=== PATIENT | male | born 1960 | race Caucasian/White ===

== ENCOUNTER 2016-07-11 14:32 | Emergency (ER) | payer OTHER ==
[~2016-07-11] VITALS: Ht 182.9 cm; Wt 84.6 kg
[2016-07-11 14:35] VITALS: TEMP 98.6; Ht 182.9 cm; Wt 84.6 kg
--- OUTSIDE RECORDS SUMMARY | 2016-07-11 14:36 | XMS REPORT | CCD ---
Author Author YURY CRAWFORD Organization Unknown Address [address], [place] [id number] Phone 0 Care Team Providers Care Youth Services Librarian Name Role Phone ELBA HOLLEY Attending Physician 0 Vital Signs Unknown or Not Available. Allergies Unknown or Not Available. Procedures Unknown or Not Available. History of Immunizations Unknown or Not Available. Problems Unknown or Not Available. Results COMP METABOLIC - Collect Date/Time: 01/16/2016 15:54 Test Name Code Test Result Test Units Test Ref Range GLUCOSE 112 mg/dL L=70 H=110 BUN 39 mg/dL L=7 H=18 CREATININE 1.27 mg/ dL L=0.60 H=1.30 AGE 55 YEARS GFR 58.7 SODIUM 137 mmol/L L=136 H=145 POTASSIUM 4.3 mmol/ L L=3.5 H=5.1 CHLORIDE 102 mmol/L L=98 H=107 CO2 26 mmol/L L=21 H=32 CALCIUM 9.9 mg/dL L=8.5 H=10.1 AST 14 U/L L=15 H=37 ALT 42 U/L L=12 H=78 ALKALINE PHOS 110 U/ L L=46 H=116 TOTAL PROTEIN 7.5 g/ dL L=6.4 H=8.2 ALBUMIN 4.1 g/dL L=3.4 H=5.0 TOTAL BILI 0.30 mg/ dL L=0.00 H=1.00 LIPID PANEL - Collect Date/Time: 01/16/2016 15:54 Test Name Code Test Result Test Units Test Ref Range CHOLESTEROL 204 mg/ dL L=0 H=200 TRIGLYCERIDES 368 mg /dL L=30 H=150 HDL 61 mg/dL L=40 H=60 LDL, CALC 69 mg/dL L=0 H=100 VLDL 74 mg/dL L=0 H=40 CHOL/HDL RISK 3.3 RATIO L=0.0 H=5.0 PT FASTING: NO N/A THYROXINE (T4) FREE - Collect Date/Time: 01/16/2016 15:54 Test Name Code Test Result Test Units Test Ref Range FT4 0.92 ng/dL L=0.76 H=1.46 TSH - Collect Date/Time: 01/16/2016 15:54 Test Name Code Test Result Test Units Test Ref Range TSH 0.87 uIU/mL L=0.36 H=3.74 CBC W/ DIFF - Collect Date/Time: 01/16/2016 15:54 Test Name Code Test Result Test Units Test Ref Range WBC 11.0 x10^3 L=4.8 H=10.8 RBC 5.72 x10^6 L=4.70 H=6.10 HEMOGLOBIN 17.3 g/ dL L=14.0 H=18.0 HEMATOCRIT 50.0 % L=42.0 H=52.0 MCV 87 fL L=80 H=100 MCH 30.2 pg L=27.0 H=33.0 MCHC 34.5 g/dL L=33.0 H=37.0 RDW 12.9 % L=11.5 H=14.5 PLATELETS 277 x10^3 L=150 H=450 MPV 7.2 fL L=7.8 H=11.0 NEUTROPHILS 66.5 % L=40.0 H=80.0 LYMPHOCYTES 24.6 % L=20.0 H=45.0 MONOCYTES 4.7 % L=0.0 H=10.0 EOSINOPHILS 4.1 % L=0.0 H=5.0 BASOPHILS 0.1 % L=0.0 H=2.0 REFLEX MAN DIFF NO N /A UA AUTO W/ MICRO - Collect Date/Time: 01/16/2016 16:05 Test Name Code Test Result Test Units Test Ref Range COLOR Yellow N/A NORMAL: Yellow APPEARANCE Clear N/ A NORMAL: Clear GLUCOSE Negative N/ A NORMAL: Negative BILIRUBIN Negative N /A NORMAL: Negative KETONE Trace N/A NORMAL: Negative SPEC GRAVITY >=1.030 N/A NORMAL: 1.005-1.030 BLOOD Trace-in N/A NORMAL: Negative PROTEIN Negative N/ A NORMAL: Negative PH 5.5 N/A NORMAL: 5.0-8.0 UROBILINOGEN 0.2 N/ A NORMAL: Negative NITRITE Negative N/ A NORMAL: Negative LEUKOCYTES Negative N/A NORMAL: Negative MICRO RBC 5-10 N/A NORMAL: 0-2 MICRO WBC 0-2 N/A NORMAL: 0-2 BACTERIA None Seen N /A NORMAL: None-Trace EPI CELLS 0-5 N/A NORMAL: 0-15 MUCUS Large N/A NORMAL: None-Small AMORPHOUS Large N/A NORMAL: None Seen YEAST None Seen N/A NORMAL: None Seen CRYSTALS None Seen N /A NORMAL: None Seen CAST None Seen N/A NORMAL: None Seen URINE CULTURE? NO N/ A Active Medications Unknown or Not Available. Medications Administered During Visit Unknown or Not Available. Encounters Encounter Diagnosis Diagnosis Code Start Date Hypothyroidism, unspecified E039 2015 Social History Smoking Status Code Start Date End Date Current every day smoker [id number] Patient Decision Aids Unknown or Not Available. Discharge Instructions You were admitted to [facility] on 01/16/2016 15:50 with a principal diagnosis of Hypothyroidism, unspecified You had the following tests done: CBC W / DIFF COMP METABOLIC LIPID PANEL THYROXINE (T4) FREE TSH UA AUTO W/ MICRO You were discharged from [facility] on 01/16/2016 15:50 Should you have any questions prior to discharge, please contact a member of your healthcare team. If you have left the hospital and have any questions, please contact your primary care physician. Chief Complaint and Reason For Visit Chief Complaint Date of Onset LAB/XRAY Function Status Unknown or Not Available. Plan of Care Unknown or Not Available. Referral/Transition of Care Unknown or Not Available.
--- OUTSIDE RECORDS SUMMARY | 2016-07-11 14:36 | XMS REPORT | CCD ---
Author Author YURY CRAWFORD Organization Unknown Address [address], [place] [address] Phone 0 Care Team Providers Care Geospatial Program Management Officer Name Role Phone ANABELA AMAYA Attending Physician [phone] Vital Signs Unknown or Not Available. Allergies Unknown or Not Available. Procedures Procedure Code Procedure Type Date CHEST [id number] 02/21/2016 History of Immunizations Unknown or Not Available. Problems Unknown or Not Available. Results Unknown or Not Available. Active Medications Unknown or Not Available. Medications Administered During Visit Unknown or Not Available. Encounters Encounter Diagnosis Diagnosis Code Start Date Dyspnea, unspecified R0600 02/21/2016 Social History Smoking Status Code Start Date End Date Current every day smoker [id number] Patient Decision Aids Unknown or Not Available. Discharge Instructions You were admitted to [facility] on 02/21/2016 11:56 with a principal diagnosis of Dyspnea, unspecified You were discharged from [facility] on 02/21/2016 11:56 Should you have any questions prior to discharge, please contact a member of your healthcare team. If you have left the hospital and have any questions, please contact your primary care physician. Chief Complaint and Reason For Visit Chief Complaint Date of Onset CXR Function Status Unknown or Not Available. Plan of Care Unknown or Not Available. Referral/Transition of Care Unknown or Not Available.
--- OUTSIDE RECORDS SUMMARY | 2016-07-11 14:36 | XMS REPORT ---
Author Author [facility] Organization [facility] Address [address] [place], [place] [address] Phone [phone] Care Team Providers Care Metal Refiner Name Role Phone JAXON DE LEON, MAXIME PP [phone] Summary purpose CCDA Sent to [facility] Chief Complaint and Reason for Visit No authorized Reason for Visit (Admitting Diagnosis) is available for this visit. Problem list No authorized problems tracked for continuity of care are available for this visit. Encounters No authorized problems tracked for encounter diagnoses are available for this visit. Medications No medications recorded for this patient visit Allergies, adverse reactions, alerts Allergen Category Ingredient Status Reaction Severity Onset tramadol Drug tramadol Active Anaphylaxis Mild Adolescence Immunizations No immunizations recorded for this patient visit Relevant diagnostic tests and/or laboratory data No authorized results are available for this patient visit History of procedures Procedure Code Code Type Description Date Performed Performing Physician 27073 CPT-4 EMERGENCY DEPT VISIT 05-28-2015 SERA BRIGHT Functional status No functional or cognitive status observations are available for this visit. Vital signs No authorized vital signs are available for this visit. Social history No Social History or smoking status observations were recorded for this visit. ( Unknown if ever smoked.) Treatment Plan No treatment plan text is available for this visit. Hospital discharge instructions No discharge instruction text is available for this visit.
--- OUTSIDE RECORDS SUMMARY | 2016-07-11 14:36 | XMS REPORT | Continuity of Care Document ---
Demographics Preferred Language Unknown Marital Status Unknown Sabianist Affiliation Unknown Race Unknown Ethnic Group Unknown Author Author [facility] Organization [facility] Address Unknown Phone Unavailable Allergies Active Description Code Type Severity Reaction Onset Reported/Identified Relationship to Patient Clinical Status Yes tramadol 4180 Drug Allergy N/A N/A Confirmed or Verified Yes tramadol 4180 Drug Allergy Mild Anaphylaxis 05/28/2015 Medications Problems Date Dx Coded Attending Type Code Diagnosis Diagnosed By 05/28/2015 SERA BRIGHT MD S67.194A Crushing injury of right ring finger, initial encounter 05/28/2015 SERA BRIGHT MD W23.0XXA Caught, crush, jammed, or pinched betw moving objects, init 05/28/2015 SERA BRIGHT MD Y92.[address] in [facility] (private [facility] residence as place 05/28/2015 SERA BRIGHT MD Y93.89 Activity, other specified 05/28/2015 SERA BRIGHT MD Y99.9 Unspecified external cause status 05/28/2015 SERA BRIGHT MD S67.194A Crushing injury of right ring finger, initial encounter 05/28/2015 SERA BRIGHT MD W23.0XXA Caught, crush, jammed, or pinched betw moving objects, init 05/28/2015 SERA BRIGHT MD Y92.[address] in [facility] (private ) residence as place 05/28/2015 SERA BRIGHT MD Y93.89 Activity, other specified 05/28/2015 SERA BRIGHT MD Y99.9 Unspecified external cause status Procedures Code [place] [address] X-RAY EXAM OF FINGER(S) SERA BRIGHT MD 05/28/2015 25275 THER/PROPH/DIAG INJ IV PUSH SERA BRIGHT MD 05/28/2015 35334 EMERGENCY DEPT VISIT SERA BRIGHT MD 05/28/2015 J1885 KETOROLAC TROMETHAMINE INJ SERA BRIGHT MD 05/28/2015 01913 EMERGENCY DEPT VISIT SERA BRIGHT MD 05/28/2015 Results Encounters ACCT No. Visit Date/Time Discharge Status Pt. Type Provider Facility Loc./Unit Complaint [id number] 03/27/2016 12:41:00 ACT Unknown [id number] 03/04/2016 14:15:00 ACT Unknown [id number] 07/27/2014 10:32:00 ACT Unknown [id number] 05/24/2014 07:55:00 ACT Unknown [id number] 03/08/2013 09:15:00 ACT Unknown
--- OUTSIDE RECORDS SUMMARY | 2016-07-11 14:37 | XMS REPORT | CCD ---
Author Author YURY CRAWFORD Organization Unknown Address [address], [place] [address] Phone 0 Care Team Providers Care C4 Planner Name Role Phone ELBA HOLLEY Attending Physician [...] Date End Date Current every day smoker [id number] Patient Decision Aids Unknown or Not Available. Discharge Instructions You were admitted to [facility] on 01/16/2016 15:50 with a principal diagnosis of Hypothyroidism, unspecified You had the following tests done: CBC W / DIFF COMP METABOLIC LIPID PANEL THYROXINE (T4) FREE TSH UA AUTO W/ MICRO You were discharged from [facility] on 01/16/2016 15:50 Should you have [...]
--- OUTSIDE RECORDS SUMMARY | 2016-07-11 14:37 | XMS REPORT ---
Author Author [facility] Organization [facility] Address [address] [place], [place] [address] Phone [phone] Care Team Providers Care Store Consultant Name Role Phone JAXON DE LEON, MAXIME PP [phone] MAXIME COATES MD PP [phone] Summary purpose CCDA Sent to [facility] Chief Complaint and Reason for Visit No [...] Code Type Description Date Performed Performing Physician 76445 CPT-4 X-RAY EXAM OF FINGER(S) 05-28-2015 SERA BRIGHT J1885 CPT-4 KETOROLAC TROMETHAMINE INJ 05-28-2015 SERA BRIGHT 11523 CPT-4 EMERGENCY DEPT VISIT 05-28-2015 SERA BRIGHT 09126 CPT-4 THER/PROPH/DIAG INJ, IV PUSH 05-28-2015 SERA BRIGHT Functional status Cognitive Status Finding Observation Time Level of Consciousne Alert [id number] Oriented to Person Yes 88-77-251106:[address] Yes 31-97-962261:55 Oriented to Time Yes [id number]:55 Vital signs No authorized vital signs are available for this visit. Social history Type Value Smoking Status CURRENT EVERY DAY SMOKER Treatment Plan No treatment plan text is available for this visit. Hospital discharge instructions No discharge instruction text is available for this visit.
--- OUTSIDE RECORDS SUMMARY | 2016-07-11 14:37 | XMS REPORT | CCD ---
Author Author RAUL VILLAGOMEZ Organization Unknown Address [address], [place] [address] Phone 0 Care Team Providers Care Courtesy Car Driver Name Role Phone ELBA HOLLEY Attending Physician 0 Vital Signs Unknown or Not Available. Allergies Unknown or Not Available. Procedures Unknown or Not Available. History of Immunizations Unknown or Not Available. Problems Unknown or Not Available. Results COMP METABOLIC - Collect Date/Time: 05/11/2014 11:58 Test Name Code Test Result Test Units Test Ref Range GLUCOSE 115 mg/dL L=70 H=110 BUN 22 mg/dL L=7 H=18 CREATININE 1.40 mg/ dL L=0.60 H=1.30 AGE 53 YEARS GFR 56.1 SODIUM 140 mmol/L L=136 H=145 POTASSIUM 4.0 mmol/ L L=3.5 H=5.1 CHLORIDE 103 mmol/L L=98 H=107 CO2 27 mmol/L L=21 H=32 CALCIUM 9.8 mg/dL L=8.5 H=10.1 AST 17 U/L L=15 H=37 ALT 26 U/L L=12 H=78 ALKALINE PHOS 120 U/ L L=46 H=116 TOTAL PROTEIN 7.5 g/ dL L=6.4 H=8.2 ALBUMIN 4.1 g/dL L=3.4 H=5.0 TOTAL BILI 0.40 mg/ dL L=0.00 H=1.00 CBC W/ DIFF - Collect Date/Time: 05/11/2014 11:58 Test Name Code Test Result Test Units Test Ref Range WBC 10.8 x10^3 L=4.8 H=10.8 RBC 5.65 x10^6 L=4.70 H=6.10 HEMOGLOBIN 16.7 g/ dL L=14.0 H=18.0 HEMATOCRIT 49.1 % L=42.0 H=52.0 MCV 87 fL L=80 H=100 MCH 29.6 pg L=27.0 H=33.0 MCHC 34.1 g/dL L=33.0 H=37.0 RDW 12.5 % L=11.5 H=14.5 PLATELETS 263 x10^3 L=150 H=450 MPV 8.3 fL L=7.8 H=11.0 NEUTROPHILS 68.1 % L=40.0 H=80.0 LYMPHOCYTES 22.5 % L=20.0 H=45.0 MONOCYTES 5.7 % L=0.0 H=10.0 EOSINOPHILS 2.9 % L=0.0 H=5.0 BASOPHILS 0.8 % L=0.0 H=2.0 REFLEX MAN DIFF NO N /A Active Medications Unknown or Not Available. Medications Administered During Visit Unknown or Not Available. Encounters Unknown or Not Available. Social History Smoking Status Code Start Date End Date Current every day smoker [id number] Patient Decision Aids Unknown or Not Available. Discharge Instructions You were admitted to [facility] on 05/11/2014. You were discharged from [facility] on 05/11/2014. Should you have any questions prior to discharge, please contact a member of your healthcare team. If you have left the hospital and have any questions, please contact your primary care physician. Chief Complaint and Reason For Visit Chief Complaint Date of Onset LAB Function Status Unknown or Not Available. Plan of Care Unknown or Not Available. Referral/Transition of Care Unknown or Not Available.
--- OUTSIDE RECORDS SUMMARY | 2016-07-11 14:37 | XMS REPORT | CCD ---
Author Author KEYANNA BLACKBURN Organization Unknown Address [address], [place] [address] Phone 0 Care Team Providers Care Customer Development Manager Name Role Phone ELBA HOLLEY Attending Physician 0 Vital Signs Unknown. Allergies Unknown. Procedures Unknown. History of Immunizations Unknown. Problems Unknown. Results TSH Test Name Code Test Result Test Units Test Date/Time TSH 1.9800 uIU/mL 03/05/2013 16:30 COMP METABOLIC Test Name Code Test Result Test Units Test Date/Time GLUCOSE 75.0000 mg/ dL 03/05/2013 16:30 BUN 25.0000 mg/dL 03/05/2013 16:30 CREATININE 1.3000 mg /dL 03/05/2013 16:30 AGE 52.[birth year] YE[age] 03/05/2013 16:30 GFR 61.4000 03/05/2013 16:30 SODIUM 139.0000 mmol /L 03/05/2013 16:30 POTASSIUM 3.9000 mmol/L 03/05/2013 16:30 CHLORIDE 104.0000 mmol/L 03/05/2013 16:30 CO2 26.0000 mmol/L 03/05/2013 16:30 CALCIUM 9.2000 mg/ dL 03/05/2013 16:30 AST 13.0000 U/L 03/05/2013 16:30 ALT 34.0000 U/L 03/05/2013 16:30 ALKALINE PHOS 125.0000 U/L 03/05/2013 16:30 TOTAL PROTEIN 7.3000 g/dL 03/05/2013 16:30 ALBUMIN 4.0000 g/dL 03/05/2013 16:30 TOTAL BILI 0.1000 mg /dL 03/05/2013 16:30 THYROXINE (T4) FREE Test Name Code Test Result Test Units Test Date/Time FT4 0.7700 ng/dL 03/05/2013 16:30 CBC W/ DIFF Test Name Code Test Result Test Units Test Date/Time WBC 10.5000 x10^3 03/05/2013 16:30 RBC 5.0300 x10^6 03/05/2013 16:30 HEMOGLOBIN 15.2000 g /dL 03/05/2013 16:30 HEMATOCRIT 44.9000 % 03/05/2013 16:30 MCV 89.0000 fL 03/05/2013 16:30 MCH 30.3000 pg 03/05/2013 16:30 MCHC 33.9000 g/dL 03/05/2013 16:30 RDW 11.9000 % 03/05/2013 16:30 PLATELETS 231.0000 x10^3 03/05/2013 16:30 MPV 8.0000 fL 03/05/2013 16:30 NEUTROPHILS 52.7000 % 03/05/2013 16:30 LYMPHOCYTES 35.2000 % 03/05/2013 16:30 MONOCYTES 6.1000 % 03/05/2013 16:30 EOSINOPHILS 4.7000 % 03/05/2013 16:30 BASOPHILS 1.3000 % 03/05/2013 16:30 REFLEX MAN DIFF NO N /A 03/05/2013 16:30 Medications Unknown. Medications Administered Unknown. Encounters Unknown. Social History Smoking Status Code Start Date End Date Current every day smoker [id number] Patient Decision Aids Unknown. Instructions You were admitted to [facility] on 03/05/2013. You had the following tests done: WBC RBC HEMOGLOBIN HEMATOCRIT MCV MCH MCHC RDW PLATELETS MPV NEUTROPHILS LYMPHOCYTES MONOCYTES EOSINOPHILS BASOPHILS REFLEX MAN DIFF GLUCOSE BUN CREATININE AGE GFR SODIUM POTASSIUM CHLORIDE CO2 CALCIUM AST ALT ALKALINE PHOS TOTAL PROTEIN ALBUMIN TOTAL BILI FT4 TSH You were discharged from [facility] on 03/05/2013. Should you have any questions prior to discharge, please contact a member of your healthcare team. If you have left the hospital and have any questions, please contact your primary care physician. Chief Complaint and Reason For Visit Chief Complaint Date of Onset LAB Function Status Unknown. Plan of Care Unknown.
--- OUTSIDE RECORDS SUMMARY | 2016-07-11 14:37 | XMS REPORT | CCD ---
Author Author RAUL VILLAGOMEZ Organization Unknown Address [address], [place] [address] Phone 0 Care Team Providers Care Fruit Inspector Name Role Phone ELBA HOLLEY Attending Physician 0 Vital Signs Unknown or Not Available. Allergies Unknown or Not Available. Procedures Unknown or Not Available. History of Immunizations Unknown or Not Available. Problems Unknown or Not Available. Results COMP METABOLIC - Collect Date/Time: 06/30/2014 12:00 Test Name Code Test Result Test Units Test Ref Range GLUCOSE 105 mg/dL L=70 H=110 BUN 19 mg/dL L=7 H=18 CREATININE 1.10 mg/ dL L=0.60 H=1.30 AGE 53 YEARS GFR 74.1 SODIUM 141 mmol/L L=136 H=145 POTASSIUM 4.0 mmol/ L L=3.5 H=5.1 CHLORIDE 107 mmol/L L=98 H=107 CO2 25 mmol/L L=21 H=32 CALCIUM 9.1 mg/dL L=8.5 H=10.1 AST 17 U/L L=15 H=37 ALT 33 U/L L=12 H=78 ALKALINE PHOS 120 U/ L L=46 H=116 TOTAL PROTEIN 6.8 g/ dL L=6.4 H=8.2 ALBUMIN 3.6 g/dL L=3.4 H=5.0 TOTAL BILI 0.20 mg/ dL L=0.00 H=1.00 THYROXINE (T4) FREE - Collect Date/Time: 06/30/2014 12:00 Test Name Code Test Result Test Units Test Ref Range FT4 0.90 ng/dL L=0.76 H=1.46 TSH - Collect Date/Time: 06/30/2014 12:00 Test Name Code Test Result Test Units Test Ref Range TSH 2.70 uIU/mL L=0.36 H=3.74 Active Medications Unknown or Not Available. Medications Administered During Visit Unknown or Not Available. Encounters Unknown or Not Available. Social History Smoking Status Code Start Date End Date Current every day smoker [id number] Patient Decision Aids Unknown or Not Available. Discharge Instructions You were admitted to [facility] on 06/30/2014. You were discharged from [facility] on 06/30/2014. Should you have any questions prior to discharge, please contact a member of your healthcare team. If you have left the hospital and have any questions, please contact your primary care physician. Chief Complaint and Reason For Visit Unknown or Not Available. Function Status Unknown or Not Available. Plan of Care Unknown or Not Available. Referral/Transition of Care Unknown or Not Available.
--- NOTE | 2016-07-11 14:47 | ERPDOC ---
Departure Disposition Decision Date: Jul 11, 2016 Disposition Decision Time: 15:36 Disposition: 01 DISCHARGED HOME, SELF-CARE Impression Impression Impression: Primary Impression: Chest wall contusion Encounter type: initial encounter Laterality: left Qualified Codes: S20.212A - Contusion of left front wall of thorax, initial encounter Severity: Moderate Condition: Stable Seen By: Physician only Referrals: PARUL AMAYA "ANABELA" (Family) Patient Instructions: Noncardiac Chest Pain (ED) Problems/Meds/Labs Reviewed?: Yes Medications reviewed and manag: Yes Additional Instructions: Recommend ibuprofen 800 mg every 8 hours as needed, I usually recommend take it constantly for the 1st 3 days We'll provide some baclofen and tramadol for severe pain Follow-up with primary care physician not improving in about one week Follow up care ordered?: Yes Mental Status: Alert, Oriented Scripts Tramadol HCl (Tramadol HCl) 50 Mg Tablet 1-2 TAB PO Q6H Y for PAIN, #20 TAB Prov: MARK ANTHONY SANCHEZ MD 07/11/16 Baclofen (Baclofen) 20 Mg Tablet 1 TAB PO TID, #20 TAB Prov: MARK ANTHONY SANCHEZ MD 07/11/16 HPI - Chest Pain General Stated Complaint: CP Time Seen by Provider: 14:47 Source: patient Exam Limitations: no limitations HPI - Chest Pain Initial Comments patient presents for intermittent chest pain waxing and waning all day. Admits he was laying under a house doing work and it might be muscles. No N/V diaphoresis or weakness Aspirin Treatment Today: 81 mg x 4, provided by ED Allergies: Coded Allergies: No Known Allergies (Unverified , 07/11/16) Past History Past Medical History Pt denies signifigant H Surgical History Denies Surgeries Social History Smoking Status: Current every day smoker Substance Use Type: does not use Alcohol Intake: none Review of Systems Constitutional Constitutional: DENIES: appetite decrease, chills, dizziness, fever, weakness Eyes Vision: DENIES: loss of visual bonner ENMT Sinuses: DENIES: congestion, rhinorrhea Mouth/Throat: DENIES: scratchy throat, sore throat Cardiovascular Cardiac: chest pain, DENIES: dyspnea on exertion Rhythm/Rate: DENIES: palpitations, tachycardia Pulmonary Respiratory: DENIES: cough, dyspnea, pleuritic chest pain, sputum GI Upper Abdomen: DENIES: nausea, pain, vomiting Lower Abdomen: DENIES: constipation, diarrhea, pain General: DENIES: frequency, urgency Integumentary Skin: DENIES: color change, itching, rash Endocrine Endocrine: DENIES: heat/cold intolerance Hematologic/Lymphatic Hematologic/Lymphatic: DENIES: anemia Physical Exam General General Nourishment: well nourished, well developed General Body Habitus: well groomed Vitals and Pain Weight: Kilograms: Height (feet): Height (inches): Triage Pain Scale: RN VS reviewed by Provider: Yes Eyes (brief) Eyes Brief: found: EOMI, PERRL ENMT (brief) ENMT Brief: FOUND: TM clear, TM good light reflex, ear canals clear, mucosa moist, normal dentition, NOT FOUND: nasal exudate, nasal swelling, pharnyx erythema, tonsillar deviation Neck (brief) Neck: NOT FOUND: adenopathy, spasm, tenderness Respiratory (brief) Respiratory: FOUND: clear all bonner, equal bilaterally, NOT FOUND: rales, tenderness, wheezes Cardiovascular (brief) Cardiac: FOUND: regular rate, regular rhythm Capillary Refill: <2 sec Abdomen (brief) Abdominal Brief: FOUND: bowel normo active x4, soft, NOT FOUND: distended, tender Lymphatic (brief) Lymphatic Brief: NOT FOUND: adenopathy Musculoskeletal (brief) Musculoskeletal Brief: NOT FOUND: spasm, tenderness Integumentary (brief) Integumentary Brief: FOUND: dry, pink, warm, NOT FOUND: rash Neurologic (brief) Neurological Brief: FOUND: CN w/o gross def to obs, motor-no gross deficits, sensory-no gross deficits Psychiatric (brief) Psychiatric Brief: FOUND: alert, oriented Differential Diagnoses Considering: Acute MN, Costochondritis, Esophageal Spasm, GERD, Hypertensive Emergency, Hyperventilation, Pneumonia, Pulmonary Edema, Muscle Spasm Progress Results/Orders Orders Lab Results Medications Current ED Medications Aspirin (ASA) 324 mg O ONCE PO Last administered on 07/11/16 14:40; Start at 15:00; Stop 07/11/16 at 15:01; Status DC Nitroglycerin (Nitrostat) 0.4 mg Q5MIN PRN SL CHEST PAIN Last administered on 14:50; Start 07/11/16 at 15:00; Stop 07/12/16 at 00:38; Status DC Ketorolac Tromethamine (Toradol) 30 mg O ONCE IV Last administered on 15:27; Start 07/11/16 at 15:30; Stop 07/11/16 at 15:31; Status DC EKG EKG : Rate: 60-100 Rhythm: sinus [place]: normal QRS: normal Intervals: normal ST/T: non-specific changes Interpreted by: signing physician Xray Xray : Xray: CXR Portable Interpretation: Normal, Reviewed Written Report MARK ANTHONY SANCHEZ MD Jul 11, 2016 14:47 Creatinine 1.1MG/DL Glomerular Filtration Rate Calc 69 BUN/Creatinine Ratio 23RATIO Glucose Level 101MG/DL Calculated Osmolality 281MOSM/KG Calcium Level 9.7MG/DL Magnesium Level 1.9MG/DL Total Bilirubin 0.60MG/DL Icterus Index < 2 Aspartate Amino Transf (AST/SGOT) 23U/L Alanine Aminotransferase (ALT/SGPT) 31U/L Alkaline Phosphatase 85U/L Troponin I < 0.012ng/ml FT-Rxs-S-Type Natriuretic Peptide 42PG/ML Total Protein 6.8G/DL Albumin 4.1G/DL Globulin 2.7G/DL Albumin/Globulin Ratio 1.5RATIO Chemistry Specimen Hemolysis < 15 Medications Current ED Medications Aspirin (ASA) 324 mg O ONCE PO Last administered on 07/11/16 14:40; Start at 15:00; Stop 07/11/16 at 15:01; Status DC Nitroglycerin (Nitrostat) 0.4 mg Q5MIN PRN SL CHEST PAIN Last administered on 14:50; Start 07/11/16 at 15:00 Ketorolac Tromethamine (Toradol) 30 mg O ONCE IV Last administered on 15:27; Start 07/11/16 at 15:30; Stop 07/11/16 at 15:31; Status DC MARK ANTHONY SANCHEZ MD Jul 11, 2016 14:47
--- OUTSIDE RECORDS SUMMARY | 2016-07-11 14:53 | XMS REPORT | Continuity of Care Document ---
Demographics Preferred Language Unknown Marital Status Unknown Jain Affiliation Unknown Race Unknown Ethnic Group Unknown Author Author [facility] Organization [facility] Address Unknown Phone Unavailable Allergies Active Description [...] SERA BRIGHT MD Y92.[address] in [facility] (private [facility] residence as place 05/28/2015 SERA BRIGHT MD Y93.89 Activity, other specified 05/28/2015 SERA BRIGHT MD Y99.9 Unspecified external cause status 05/28/2015 SERA BRIGHT MD S67.194A Crushing injury of right ring finger, initial encounter 05/28/2015 SERA BRIGHT MD W23.0XXA Caught, crush, jammed, or pinched betw moving objects, init 05/28/2015 SERA BRIGHT MD Y92.[address] in [facility] (private [facility] residence as place 05/28/2015 SERA BRIGHT MD Y93.89 Activity, other specified 05/28/2015 SERA BRIGHT MD Y99.9 Unspecified external cause status Procedures Code [place] [id number] X-RAY EXAM OF FINGER(S) SERA BRIGHT MD 05/28/2015 32973 THER/PROPH/DIAG INJ IV PUSH SERA BRIGHT MD 05/28/2015 [id number] EMERGENCY DEPT VISIT SERA BRIGHT MD 05/28/2015 [id number] KETOROLAC TROMETHAMINE INJ SERA BRIGHT MD 05/28/2015 [id number] EMERGENCY DEPT VISIT SERA BRIGHT MD 05/28/2015 Results Encounters ACCT No. Visit Date/Time Discharge Status Pt. Type Provider Facility Loc./Unit Complaint [id number] 03/27/2016 12:41:00 [facility] Unknown [id number] 03/04/2016 14:15:00 ACT Unknown [id number] 07/27/2014 10:32:00 ACT Unknown [id number] 05/24/2014 07:55:00 ACT Unknown [id number] 03/08/2013 09:15:00 ACT Unknown
--- NOTE | 2016-07-11 14:55 | NUR ---
Nitro Nitro given, BP set to automatically measure every 10 minutes.
[2016-07-11 14:59] LABS: BASOPHILS % (AUTO) 0.6 % (0-2); EOSINOPHILS # (AUTO) 0.3 T/MM3 (0-0.5); EOSINOPHILS % (AUTO) 4.3 % (0-4); HCT - HEMATOCRIT 45.2 % (41-53); HGB - HEMOGLOBIN 15.7 GM/DL (13.5-17.5); IMMATURE GRANULOCYTE # (AUTO) 0.01 T/MM3 (0.00-0.03); IMMATURE GRANULOCYTE % (AUTO) 0.2 % (0.0-0.5); LYMPHOCYTES # (AUTO) 2.3 T/MM3 (1-4.8); LYMPHOCYTES % (AUTO) 35.8 % (23-45); MEAN CORPUSCULAR HGB 30.4 UUG (26-34); MEAN CORPUSCULAR HGB CONC(MCHC 34.7 GM/DL (31-37); MEAN CORPUSCULAR VOLUME 87.4 UM3 (80-100); MONOCYTES # (AUTO) 0.3 T/MM3 (0-0.8); MONOCYTES % (AUTO) 5.4 % (0-9.0); NEUTROPHILS #(AUTO)-ABSOLUTE 3.4 T/MM3 (1.8-7.7); NEUTROPHILS % (AUTO) 53.7 % (33-66); RED BLOOD COUNT 5.17 M/MM3 (4.50-5.90); WBC - WHITE BLOOD COUNT 6.3 T/MM3 (4.5-11.0)
--- NOTE | 2016-07-11 14:59 | NUR ---
BP BP noted to be 78/43. Patient alert and oriented x3.
[2016-07-11] MEDS ORDERED: NITROGLYCERIN 0.4 MG SUBLINGUAL TABLET SL PRN (15:00)
[2016-07-11] MEDS ORDERED: ASPIRIN 81 MG CHEWABLE TABLET PO ONE (15:00)
--- NOTE | 2016-07-11 15:00 | NUR ---
BP Head of bed lowered, knees and feet elevated, 2nd BP measurement initiated. BP improved.
[2016-07-11] MEDS ORDERED: LOSA100T44 PO (15:03)
[2016-07-11] MEDS ORDERED: HYDR-4072 PO (15:03)
[2016-07-11] MEDS ORDERED: METH5TAB58 PO (15:03)
[2016-07-11] MEDS ORDERED: ATEN25TA PO (15:03)
[2016-07-11 15:06] LABS: ALBUMIN 4.1 G/DL (3.5-5.0); ALBUMIN/GLOBULIN RATIO 1.5 RATIO (1.1-2.2); ALKALINE PHOSPHATASE 85 U/L (38-126); ALT (SGPT) 31 U/L (21-72); ANION GAP 11 MEQ/L (5-15); AST (SGOT) 23 U/L (17-59); BUN/CREATININE RATIO 23 RATIO (6-26); CALCIUM 9.7 MG/DL (8.4-10.2); CHLORIDE 110 MEQ/L (98-107); CO2 - CARBON DIOXIDE 23 MEQ/L (22-30); CREATININE 1.1 MG/DL (0.8-1.5); GLOMERULAR FILTRATION RATE 69; GLUCOSE 101 MG/DL (75-110); MAGNESIUM 1.9 MG/DL (1.6-2.3); POTASSIUM 3.8 MEQ/L (3.6-5); SODIUM 144 MEQ/L (134-144); TOTAL PROTEIN 6.8 G/DL (6.3-8.2)
[2016-07-11 15:14] LABS: PROBNP 42 PG/ML (0-175)
--- NOTE | 2016-07-11 15:29 | DI ---
Indication: ITS.REASON: chest pain CHEST 1 VIEW: Comparison: None Technique: Single portable upright chest Findings: Patient showed normal heart, mediastinum and central vascularity. Lungs are clear. No acute bony findings identified. Impression: Unremarkable single view chest. .
[2016-07-11] MEDS ORDERED: KETOROLAC 30mg/ml INJECTION IV ONE (15:30)
[2016-07-11] MEDS ORDERED: BACL20TA PO (15:37)
[2016-07-11] MEDS ORDERED: TRAM50TA4 PO (15:37)
[2016-07-11 15:50] VITALS: BP 117/71; PULSE 61; RESP 19; O2SAT 95
== END 2016-07-11 15:50 | disposition home or self-care (01) ==
LOC: ED 14:32
DX: S20.212A Contusion of left front wall of thorax, initial encounter (principal); X58.XXXA Exposure to other specified factors, initial encounter; Y93.H9 Activity, other involving exterior property and land maintenance, building and construction; Y92.008 Other place in unspecified non-institutional (private) residence as the place of occurrence of the external cause; Y99.8 Other external cause status
CPT/HCPCS: 36000; 71010; 80053; 83735; 83880; 84484; 85025; 85379; 93005; 96374; 99284; J1885